=== PATIENT | male | born 1970 | race Caucasian/White ===

== ENCOUNTER 2016-11-05 13:17 | Emergency (ER) | payer BC, MEDICAID ==
[~2016-11-05] VITALS: Ht 165.1 cm; Wt 100.0 kg
[~2016-11-05 13:17] MED LIST: ADV25050 INHALATION; AMIO100T4 PO; AMLO-218 PO; ASCO500C7 PO; ASPI-664 PO; ATOR20TA38 PO; CALC667C PO; CHOL100062 PO; CLON-429 PO; DOCU-159 PO; ESOM40CA PO; FER325 PO; FOLI1CAP PO; FURO40TA4 PO; GABA300C16 PO; HYDR-3671 PO; HYDR-902 PO; HYDR4TAB18 PO; IPRA3AMP INHALATION; LEVA0.634 INHALATION; LEVE-5 PO; LORA1TAB PO; LOSA50TA6 PO; MAG-19 PO; METH10TA2 PO; METO-429 PO; NIT4 SL; ONDA-43 PO; PHEN300C2 PO; RISP2TAB3 PO; TRAM-40 PO
[2016-11-05 13:21] VITALS: Ht 165.1 cm; Wt 100.0 kg
[2016-11-05] MEDS ORDERED: ONDANSETRON (ODT) 4 MG TAB ODT STA (15:43)
[2016-11-05] MEDS ORDERED: HYDROCODONE/APAP (10/325) TAB PO ONE (16:00)
[2016-11-05] MEDS ORDERED: DIPHENHYDRAMINE 25 MG CAP PO ONE (16:00)
--- NOTE | 2016-11-05 19:56 | ERD ---
ER Documentation Chief Complaint Date/Time DATE: 11/05/16 TIME: 19:52 Chief Complaint L shoulder pain s/p ground level fall HPI Patient is a 46-year-old male with hypertension, seizures, and dialysis who presents with left shoulder pain. He was brought in by ambulance. He said that he fell today. He was already seen and [place] emergency department and had x-rays which showed no fracture. He is complaining of left-sided shoulder pain and says that he drank beer to numb the pain. He has not taken any pain medicines as of yet. He says "Dilaudid will work". Upon review of old medical records the patient one previous visit to the ER in 2016 but upon review of the emergency department information exchange shows visits to 7 different emergency departments over the past 1 year. ROS All systems reviewed and are negative except as per history of present illness. Medications Home Meds Reported Medications Ferrous Sulfate* (Ferrous Sulfate*) 325 Mg Tabec, 325 MG PO DAILY, TAB 08/15/16 Esomeprazole Mag Trihydrate (Nexium) 40 Mg Capsule.dr, 40 MG PO DAILY, #30 CAP 08/15/16 Ascorbic Acid* (Vitamin C*) 500 Mg Capsule.sa, 500 MG PO DAILY, CAP 08/15/16 Tramadol Hcl* (Ultram*) 50 Mg Tablet, 50 MG PO Q4H WHILE AWAKE Y for PAIN, TAB 08/15/16 Cholecalciferol* (Vitamin D3*) 1,000 Unit Tablet, 1000 UNIT PO BID, TAB 08/15/16 Ipratropium-Albuterol (Ipratropium-Albuterol) 0.5-3 Mg/3 Ml Ampul.neb, 3 ML INHALATION Q2H Y for WHEEZING AND SOB, #30 VIAL 08/15/16 Calcium Acetate* (Calcium Acetate*) 667 Mg Capsule, 667 MG PO WITH MEALS, #60 CAP 08/15/16 Magaldrate/Simethicone* (Mylanta*) 355 Ml Susp, 30 ML PO Q4H WHILE AWAKE Y for GASTROINTESTINAL UPSET, ML 08/15/16 Docusate Sodium* (Docusate Sodium*) 100 Mg Capsule, 100 MG PO BID Y for CONSTIPATION, #60 CAP 08/15/16 Ondansetron Hcl* (Zofran*) 4 Mg Tab, 4 MG PO Q4H Y for NAUSEA AND OR VOMITING, TAB 08/15/16 Phenytoin* Sodium Extended (Dilantin*) 300 Mg Capsule, 300 MG PO HS, CAP 08/15/16 Atorvastatin Calcium* (Atorvastatin Calcium*) 20 Mg Tablet, 20 MG PO QHS, #30 TAB 08/15/16 Nitroglycerin* (Nitrostat*) 0.4 Mg Tab.subl, 0.4 MG SL Q5MIN Y for CHEST PAIN, BOTTLE 08/15/16 Lorazepam* (Lorazepam*) 1 Mg Tablet, 1 MG PO Q8 Y for ANXIETY, #60 TAB 08/15/16 Hydrocodone/Acetaminophen ([place] 10-325 Tablet) 1 Each Tablet, 2 EACH PO Q6 Y for PAIN LEVEL 6-10, TAB 08/15/16 Hydromorphone Hcl* (Dilaudid*) 4 Mg Tablet, 4 MG PO Q4H Y for SEVERE PAIN LEVEL 7-10, TAB 08/15/16 Hydralazine Hcl* (Hydralazine Hcl*) 25 Mg Tab, 75 MG PO Q8, #60 TAB 08/15/16 Gabapentin* (Gabapentin*) 300 Mg Capsule, 300 MG PO QAM, #60 CAP 08/15/16 Levetiracetam* (Keppra*) 500 Mg Tablet, 500 MG PO BID, TAB 08/15/16 Clonazepam* (Klonopin*) 0.5 Mg Tab, 0.5 MG PO QID Y for ANXIETY, TAB 08/15/16 Salmeterol Xinaf/Fluticasone* (Advair*) 250-50 Diskus Inhaler, 1 INH INHALATION BID, #1 INHALER 08/15/16 Levalbuterol Hcl* (Levalbuterol Hcl*) 0.63 Mg/3 Ml Vial.neb, 0.63 MG INHALATION Q6H Y for WHEEZING AND SOB, VIAL 08/15/16 Metoprolol Tartrate* (Lopressor*) 50 Mg Tab, 50 MG PO BID, #60 TAB 08/15/16 Furosemide* (Furosemide*) 40 Mg Tablet, 40 MG PO DAILY, TAB 08/15/16 Losartan Potassium* (Losartan Potassium*) 50 Mg Tablet, 50 MG PO BID, TAB 08/15/16 Amiodarone Hcl* (Amiodarone Hcl*) 100 Mg Tablet, 100 MG PO BID, #30 TAB 08/15/16 Amlodipine Besylate* (Norvasc*) 10 Mg Tablet, 10 MG PO DAILY, TAB 08/15/16 Risperidone* (Risperidone*) 2 Mg Tablet, 2 MG PO BID, TAB 08/15/16 Aspirin (Low Dose Aspirin) 81 Mg Tablet.dr, 81 MG PO DAILY, #30 TAB 08/15/16 Folic Acid/Vitamin B Comp W-C (Nephrocaps Capsule) 1 Mg Capsule, 1 MG PO DAILY, CAP 08/15/16 Methadone Hcl* (Methadone*) 10 Mg Tab, 10 MG PO DAILY, TAB 08/15/16 Allergies Allergies: Coded Allergies: morphine (Verified Adverse Reaction, Mild, STOMACH PAIN, 08/15/16) PMhx/Soc History of Surgery: Yes (Tracheostomy, right tunnel catheter) Hx Neurological Disorder: Yes (Seizure disorder) Hx Respiratory Disorders: Yes (COPD, respiratory failure) Hx Cardiac Disorders: Yes (Congestive heart failure) Hx Psychiatric Problems: Yes (Schizophrenia) Hx Miscellaneous Medical Probl: Yes (As per HPI) Hx Alcohol Use: Yes Hx Substance Use: Yes Hx Tobacco Use: Yes FmHx Family History: No diabetes Physical Exam Vitals Vital Signs Date Time Temp Pulse Resp B/P Pulse Ox O2 Delivery O2 Flow Rate FiO2 11/05/16 13:21 98.8 64 20 121/90 100 Physical Exam Const: Mild distress secondary to pain Head: Atraumatic Eyes: Normal Conjunctiva ENT: Normal External Ears, Nose and Mouth. Neck: Full range of motion..~ No meningismus. Resp: Clear to auscultation bilaterally Cardio: Regular rate and rhythm, no murmurs Abd: Soft, non tender, non distended. Normal bowel sounds Skin: No petechiae or rashes, no obvious bruising noted Back: No midline or flank tenderness Ext: Left shoulder pain with palpation without gross deformity noted Neur: Awake and alert Psych: Normal Mood and Affect Results 24 hrs Current Medications Medications (Trade) Dose Ordered Sig/Trever Route PRN Reason Start Time Stop Time Status Last Admin Dose Admin Acetaminophen/ Hydrocodone Bitart ([place] ([id number])) 1 tab ONCE ONCE PO 11/05/16 16:00 11/05/16 16:01 DC 11/05/16 16:10 Ondansetron HCl (Zofran Odt) 4 mg ONCE STAT ODT 11/05/16 15:43 11/05/16 15:45 DC 11/05/16 16:10 Diphenhydramine HCl (Benadryl) 25 mg ONCE ONCE PO 11/05/16 16:00 11/05/16 16:01 DC 11/05/16 16:10 Procedures/[facility] EKG read by me: Rate/Rhythm: Regular rate and rhythm at a normal rate Intervals: Left bundle branch block Impression: Left bundle branch block with negative Sgarbossa criteria Smoking Cessation Therapy: Pt. was lectured for greater than 3 minutes on the health risks of continued smoking and the benefits of cessation. Patient is a 46-year-old male with renal disease, hypertension, and seizures who presents with left-sided shoulder pain after fall. He already had x-rays done today and [facility] which were negative and showed no fracture. I do believe there is an element of pain seeking behavior here. The patient was given [place] and Zofran as well as Benadryl. The patient will not be given any prescriptions for narcotic medicines. He will need to follow-up closely with his primary doctor within 24 hours for reevaluation. He can return sooner for any worsening symptoms. He says that he has missed dialysis and I told him it is imperative that he keeps his appointment for dialysis but at this point there is no sign of hyperkalemia on his EKG. Departure Diagnosis: Primary Impression: Syncope Syncope type: unspecified Qualified Code: R55 - Syncope, unspecified syncope type Additional Impression: Shoulder injury Encounter type: initial encounter Laterality: left Qualified Code: S49.92XA - Shoulder injury, left, initial encounter Condition: Fair Patient Instructions: Causes of Syncope Referrals: LAURA TEJEDA MD (PCP) Additional Instructions: FOLLOW UP WITH YOUR PRIMARY CARE PHYSICIAN TOMORROW.Return to this facility if you are not improving as expected. SKYLER FRAZIER MD Nov 05, 2016 19:55
== END 2016-11-05 16:28 | disposition home or self-care (01) ==
LOC: FTE 13:17
DX: R55 Syncope and collapse (principal); I50.9 Heart failure, unspecified; J44.9 Chronic obstructive pulmonary disease, unspecified; W18.39XA Other fall on same level, initial encounter; Y92.9 Unspecified place or not applicable; Z79.82 Long term (current) use of aspirin; Z87.891 Personal history of nicotine dependence
CPT/HCPCS: 93005

== ENCOUNTER 2017-04-01 05:32 | Inpatient (IN) | END 2017-04-09 20:06 | DRG 208 | DX: J96.21 Acute and chronic respiratory failure with hypoxia (principal); I13.2 Hypertensive heart and chronic kidney disease with heart failure and with stage 5 chronic kidney disease, or end stage renal disease; G93.40 Encephalopathy, unspecified; Z43.0 Encounter for attention to tracheostomy; I42.9 Cardiomyopathy, unspecified; N18.6 End stage renal disease; E87.2 Acidosis; D68.9 Coagulation defect, unspecified; J81.1 Chronic pulmonary edema; I50.20 Unspecified systolic (congestive) heart failure; F11.20 Opioid dependence, uncomplicated; E87.70 Fluid overload, unspecified; E87.5 Hyperkalemia; I48.0 Paroxysmal atrial fibrillation; Z99.2 Dependence on renal dialysis; G89.4 Chronic pain syndrome; F99 Mental disorder, not otherwise specified; E78.5 Hyperlipidemia, unspecified; Z74.01 Bed confinement status; D64.9 Anemia, unspecified; R91.8 Other nonspecific abnormal finding of lung field; Z76.5 Malingerer [conscious simulation]; E66.9 Obesity, unspecified; Z68.32 Body mass index [BMI] 32.0-32.9, adult; E87.6 Hypokalemia ==